=== PATIENT | female | born 1995 | race Caucasian/White ===

== ENCOUNTER 2016-09-23 19:57 | Emergency (ER) | payer BC ==
[2016-09-23 20:02] VITALS: BP 136/74; PULSE 91; RESP 18; TEMP 97.3; O2SAT 100
[2016-09-23] MEDS ORDERED: CEPHALEXIN 500MG PREPACK#4 BTL TAKEHOME ONE (20:30)
--- NOTE | 2016-09-23 20:35 | EDPHY ---
H & P Time Seen by Provider: 09/23/16 20:14 HPI/ROS: CHIEF COMPLAINT: Infected nipple piercings HISTORY OF PRESENT ILLNESS: 21-year-old female presents to the emergency department with her mother with concerns about possible infected nipple piercings. The patient had a both nipples pierced in January of 2016. She states that they had the were healing normally and then [place] and thinks that she may have irritated the piercings. She has noticed increasing pain and some purulent drainage and swelling and redness to both breasts. No treatment at home other than soaking the nipples in salt water. She believes her tetanus shot is current. ROS: Denies pain in her axilla. Denies fevers or chills. Denies chest pain or difficulty breathing. Past Medical/Surgical History: Negative Social History: [employer] student Smoking Status: Never smoked Physical Exam: On examination the patient has piercings to both nipples with purulent drainage noted at each piercing site. Very tender to palpate. There is surrounding redness. There is no warmth. There is no palpable lymphadenopathy in the left or the right axilla. Her lungs are clear to auscultation in all snow. Heart regular rate rhythm without murmur. Mother at bedside. Constitutional: Initial Vital Signs Temperature (C) 36.3 C 09/23/16 19:59 Heart Rate 91 09/23/16 19:59 Respiratory Rate 18 09/23/16 19:59 Blood Pressure 136/74 H 09/23/16 19:59 O2 Sat (%) 100 09/23/16 19:59 Allergies/Adverse Reactions: No Known Allergies Allergy (Unverified 09/18/14 09:15) Home Medications: Medication Instructions Recorded Adderall 20 mg (*) 09/23/16 Cephalexin [Keflex] 500 mg PO QID #40 cap 09/23/16 Medical Decision Making ED Course/Re-evaluation: 21-year-old female presents with infected piercings. I explained to the patient that it was very important to remove the nipple piercing, however the patient refused. I encouraged her reply warm compresses, bacitracin. She will be treated with Keflex. She was told to return to the emergency department if she develops fever, pain in her axilla, or if she felt worse in any way. Differential Diagnosis: Including but not limited to abscess, cellulitis, lymphangitis, mastitis - Data Points Medications Given: Discontinued Medications Cephalexin (Keflex 500 Mg Prepack#4) 1 btl TAKECATHIE EDNOW ONE PRN Reason: Protocol Stop: 09/23/16 20:31 Last Admin: 09/23/16 20:35 Dose: 1 btl Departure - Departure Disposition: Home, Routine, Self-Care Clinical Impression: Infected nipple piercings, Cellulitis of breast Condition: Good Instructions: Cephalexin (By mouth), Cellulitis (ED) Additional Instructions: Keflex 500mg four times daily for 10 days. Warm compresses to breasts 15-20 min every 3 hours especially today and tomorrow. Ibuprofen 600 mg every 8 hours as needed for pain. You should remove the nipple piercing. The infection may not resolve with the piercing intact. Return to the emergency department if you develop fever, pain in your arm pits, increasing pain, or if you feel worse in any way. Referrals: Ariane Rojas MD [place] [place] - 2-3 days, call for appt. (Primary care provider in [place]) Prescriptions: Cephalexin [Keflex] 500 mg PO QID #40 cap
== END 2016-09-23 20:43 | disposition home or self-care (01) ==
DX: N61.0 Mastitis without abscess (principal)